=== PATIENT | male | born 1975 | race Caucasian/White ===

== ENCOUNTER 2016-06-14 16:23 | Emergency (ER) | payer OTHER ==
[2016-06-14 16:29] VITALS: BP 145/84; PULSE 96; TEMP 99.1; BMI 36.6
[2016-06-14] MEDS ORDERED: KETOROLAC TROMETHAMINE 60 MG/2 ML VIAL IM ONE (18:25)
[2016-06-14] MEDS ORDERED: CYCLOBENZAPRINE HCL 10 MG TABLET (FP) PO ONE (18:25)
[2016-06-14] MEDS ORDERED: KETOROLAC TROMETHAMINE 60 MG/2 ML VIAL ONE (18:28)
[2016-06-14] MEDS ORDERED: CYCLOBENZAPRINE HCL 10 MG TABLET (FP) ONE (18:28)
--- NOTE | 2016-06-14 18:34 | PDOC ---
History of Present Illness - General Chief Complaint: Injury Stated Complaint: PAIN Time Seen by Provider: 06/14/16 17:46 History Source: Patient Exam Limitations: No Limitations - History of Present Illness Initial Comments: 06/14/16 18:31 Chief complaint: Left sided back pain and bilateral torso pain worse with movement or deep breathing History of present illness: Patient is a 41-year-old male with a history of hypertension here today complaining of bilateral torso pain with movement or deep breathing and left-sided thoracic back pain with muscle spasm with movement. Patient reports that on 06/12/2016 he had to catch a 150 pounds pipe to prevent it from hitting another person while at work. Patient twisted his torso to catch the pipe has felt discomfort bilateral torso since and left- sided thoracic back pain which is currently with movement a 9 out of 10 aching in nature. He has not taken anything for pain. Patient is any radiation of pain down the legs or arms. Patient denies any neck pain. Occurred: reports: other (06/12/16) Severity: reports: severe (b/l lateral torso, left thoracic back along paraspinal muscles) Pain Location: reports: back, other (b/l lateral torso) Method of Injury: Yes: other (moving a 150 lb pipe) Modifying Factors: improves with: immobilization Loss of Consciousness: no loss of consciousness Associated Symptoms (Fall): muscle spasms (along left thoracic back ) Past History - Past Medical History Allergies/Adverse Reactions: Allergies Allergy/AdvReac Type Severity Reaction Status Date / Time MSG AdvReac Uncoded 06/14/16 16:29 Home Medications: Ambulatory Orders Hydrochlorothiazide [Hctz -] 12.5 mg PO DAILY 11/16/15 Lisinopril 10 mg PO DAILY 11/16/15 Cyclobenzaprine HCl [Flexeril -] 10 mg PO Q8H PRN #21 tablet 06/14/16 Naproxen [Naprosyn -] 500 mg PO BID PRN #14 tablet MDD 2 06/14/16 HTN: Yes HIV: No - Immunization History Immunization Up to Date: Yes - Psycho/Social/Smoking Cessation Hx Anxiety: No Suicidal Ideation: No Smoking History: Never smoked Have you smoked in the past 12 months: No Number of Cigarettes Smoked Daily: 0 Cigars Per Day: 0 Hx Alcohol Use: No Drug/Substance Use Hx: No Substance Use Type: None Review of Systems - Review of Systems Able to Perform ROS?: Yes Constitutional: No: Symptoms Reported HEENTM: No: Symptoms Reported Respiratory: No: Symptoms reported Cardiac (ROS): No: Symptoms Reported ABD/GI: No: Symptoms Reported : No: Symptoms Reported Musculoskeletal: Yes: Back Pain (left thoracic back ), Muscle Pain (b/l lateral torso ) Integumentary: No: Symptoms Reported Neurological: No: Symptoms reported *Physical Exam - Vital Signs Last Vital Signs Temp Pulse Resp BP Pulse Ox 99.1 F 96 H 20 145/84 9 L 06/14/16 16:25 06/14/16 16:25 06/14/16 16:25 06/14/16 16:25 06/14/16 16:25 - Physical Exam General Appearance: Yes: Appropriately Dressed Neck: negative: Tender, Rigidity, Tender lateral, Tender midline Respiratory/Chest: positive: Lungs Clear, Normal Breath Sounds. negative: Chest Tender, Respiratory Distress Cardiovascular: positive: Regular Rhythm, Regular Rate, S1, S2 Musculoskeletal: positive: Normal Inspection, Muscle Spasm (along left paraspinal muscle thoracic spine, ), Other (no midline vertebral back pain ). negative: CVA Tenderness, CVA Tenderness (R), CVA Tenderness (L), Decreased Range of Motion Extremity: positive: Normal Capillary Refill, Normal Inspection, Normal Range of Motion Integumentary: positive: Normal Color Neurologic: positive: Alert, Normal Response, Motor Strength 5/5, Responsive Deep Tendon Reflexes: Knee (L): 4+, Knee (R): 4+ Medical Decision Making - Medical Decision Making 06/14/16 18:31 06/14/16 18:34 Patient is a 41-year-old male with a history of hypertension here today complaining of bilateral torso pain with movement or deep breathing and left- sided thoracic back pain with muscle spasm with movement. Patient reports that on 06/12/2016 he had to catch a 150 pounds pipe to prevent it from hitting another person while at work. Patient twisted his torso to catch the pipe has felt discomfort bilateral torso since and left-sided thoracic back pain which is currently with movement a 9 out of 10 aching in nature. He has not taken anything for pain. Patient is any radiation of pain down the legs or arms. Patient denies any neck pain. He denies any midline neck or back tenderness since this incident occurred. b/l lateral torso muscular and left thoracic back with muscle spasm PLAN: toradol 60 mg IM now naprosyn 500 mg bid prn pain # 14 tabs flexeril 10 mg po now than q 8hrs prn pain # 21 tabs follow up with orthopedist if pain continues *DC/Admit/Observation/Transfer Diagnosis at time of Disposition: Muscle spasm of back Strain of muscle of torso Qualifiers: Encounter type: initial encounter Qualified Code(s): S29.019A - Strain of muscle and tendon of unspecified wall of thorax, initial encounter Strain of back Qualifiers: Encounter type: initial encounter Qualified Code(s): S39.012A - Strain of muscle, fascia and tendon of lower back, initial encounter - Discharge Dispostion Disposition: HOME Condition at time of disposition: Stable - Prescriptions Prescriptions: Cyclobenzaprine HCl [Flexeril -] 10 mg PO Q8H PRN #21 tablet PRN Reason: Muscle Spasms Naproxen [Naprosyn -] 500 mg PO BID PRN #14 tablet MDD 2 PRN Reason: Pain - Referrals Referrals: STAFF,NOT ON [Primary Care Provider] - Elvin Howe MD [Staff Physician] - - Patient Instructions Additional Instructions: Follow Up with orthopedist if pain continues and back avoid any heavy lifting or pulling until pain has resolved Return to emergency room if pain worsens Patient voiced understanding of discharge instructions and all questions were answered
== END 2016-06-14 18:50 | disposition home or self-care (01) ==
LOC: JERFT 16:23
PROC: 3E0233Z Introduction of Anti-inflammatory into Muscle, Percutaneous Approach (ICD-10-PCS; principal; 2016-06-14)
DX: S29.019A Strain of muscle and tendon of unspecified wall of thorax, initial encounter (principal); S39.012A Strain of muscle, fascia and tendon of lower back, initial encounter; X58.XXXA Exposure to other specified factors, initial encounter; Y93.89 Activity, other specified; Y92.9 Unspecified place or not applicable; I10 Essential (primary) hypertension
CPT/HCPCS: 96372; 99281-25

== ENCOUNTER 2017-02-08 20:29 | Emergency (ER) | payer OTHER ==
[2017-02-08 20:44] VITALS: BMI 34.4
--- NOTE | 2017-02-08 21:47 | PDOC ---
History of Present Illness - General Chief Complaint: Blood Pressure Problem Stated Complaint: BLOOD PRESSURE Time Seen by Provider: 02/08/17 22:00 History Source: Patient, Spouse Exam Limitations: No Limitations - History of Present Illness Initial Comments: 02/08/17 22:18 41yo male presents ambulatory to the ED for eval of elevated BP at home. Pt states he missed his dose of hctz and did not take his nighttime dose of lisinopril 2.5mg. Pt states he drank 20 oz of coffee tonight. Pt states he has not drank regular water today. Just coffee. Denies cp/sob. No abd pain. No n/v/ d. No dysuria. States he felt tingling in his fingers earlier. No palpitations and had a mild L sided kuo earlier- checked his BP and it was 160/110 at home. Denies blurred vision. No kuo currently. NO paresthesias currently. Repeat bp in ED was 135/90. Pt denies all complaints. States he has an rx for HCTZ at the pharmacy - only missed today's dose. States has lisinopril at home, just did not take nighttime dose. Pt denies all other complaints. Past History - Travel Traveled outside of the country in the last 30 days: No Close contact w/someone who was outside of country & ill: No - Past Medical History Allergies/Adverse Reactions: Allergies Allergy/AdvReac Type Severity Reaction Status Date / Time No Known Drug Allergies Allergy Verified 02/08/17 22:08 MSG AdvReac Uncoded 06/14/16 16:29 Home Medications: Ambulatory Orders Hydrochlorothiazide [Hctz -] 12.5 mg PO DAILY 11/16/15 Lisinopril 10 mg PO DAILY 11/16/15 Cyclobenzaprine HCl [Flexeril -] 10 mg PO Q8H PRN #21 tablet 06/14/16 Naproxen [Naprosyn -] 500 mg PO BID PRN #14 tablet MDD 2 06/14/16 HTN: Yes HIV: No - Immunization History Immunization Up to Date: Yes - Psycho/Social/Smoking Cessation Hx Anxiety: No Suicidal Ideation: No Smoking History: Never smoked Have you smoked in the past 12 months: No Number of Cigarettes Smoked Daily: 0 Cigars Per Day: 0 Information on smoking cessation initiated: No Hx Alcohol Use: No Drug/Substance Use Hx: No Substance Use Type: None Review of Systems - Review of Systems Able to Perform ROS?: Yes Is the patient limited Czech proficient: No Constitutional: No: Chills, Fever, Loss of Appetite, Weakness HEENTM: No: Eye Pain, Blurred Vision, Double Vision, Nose Congestion, Tinnitus, Hearing Loss Respiratory: No: Cough, Orthopnea, Shortness of Breath, SOB with Exertion, SOB at Rest Cardiac (ROS): No: Chest Pain, Irregular Heart Rate, Palpitations ABD/GI: No: Abdominal Distended, Diarrhea, Nausea, Vomiting : No: Dysuria Musculoskeletal: No: Back Pain, Neck Pain Neurological: Yes: Headache, Tingling. No: Numbness, Paresthesia All Other Systems: Reviewed and Negative *Physical Exam - Vital Signs Last Vital Signs Temp Pulse Resp BP Pulse Ox 98.4 F 68 18 162/110 100 02/08/17 20:41 02/08/17 20:41 02/08/17 20:41 02/08/17 20:41 02/08/17 20:41 - Physical Exam General Appearance: Yes: Nourished, Appropriately Dressed. No: Apparent Distress HEENT: positive: EOMI, PHAN, Normal ENT Inspection, Pharynx Normal Neck: positive: Trachea midline, Supple. negative: Tender Respiratory/Chest: positive: Lungs Clear, Normal Breath Sounds. negative: Respiratory Distress Cardiovascular: positive: Regular Rhythm, Regular Rate, S1, S2. negative: Edema Vascular Pulses: Dorsalis-Pedis (R): 2+, Doralis-Pedis (L): 2+ Gastrointestinal/Abdominal: positive: Normal Bowel Sounds, Soft. negative: Tender, Pulsatile Mass, Tenderness Musculoskeletal: positive: Normal Inspection Extremity: positive: Normal Capillary Refill, Normal Inspection, Normal Range of Motion. negative: Delayed Capillary Refill, Pedal Edema, Swelling, Calf Tenderness Integumentary: positive: Normal Color, Dry, Warm Neurologic: positive: core cleaner II-XII NML intact, Fully Oriented, Alert, Normal Mood/ Affect, Normal Response, Motor Strength 5/5 Medical Decision Making - Medical Decision Making 02/08/17 22:07 41yo male with hx of HTN, drank 20 oz coffee, did not take HCTZ or lisinopril today with elevated BP at home and L sided kuo -all symptoms resolved -no complaints at this time -repeat bp 135/90 -no symptomatic complaints. 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 no complaints -stable for d/c to home will apple picking supervisor 02/08/17 22:15 discussed all reasons to return to the ED and need for repeat BP check tomorrow with PMD. Pt agrees with the plan. Family at the bedside agrees with the plan. 02/08/17 22:32 *DC/Admit/Observation/Transfer Diagnosis at time of Disposition: Hypertension Qualifiers: Hypertension type: unspecified Qualified Code(s): I10 - Essential (primary) hypertension - Discharge Dispostion Disposition: HOME Condition at time of disposition: Stable Admit: No - Referrals Referrals: STAFF,NOT ON [Primary Care Provider] - Luis Sandoval MD [Non Staff, Medical] - - Patient Instructions Printed Discharge Instructions: DI for High Blood Pressure Additional Instructions: Please keep your appointment to see your PMD tomorrow. Please apple picking supervisor your HCTZ from the pharmacy tomorrow. Please return to the Ed with any further concerns. - Attestations Physician Attestion: 02/08/17 22:17 I, Dr. Isidra Gatica, DO, attest that this document has been prepared under my direction and personally reviewed by me in its entirety. I further attest, that it accurately reflects all work, treatment, procedures and medical decision -making performed by me.
[2017-02-08] MEDS ORDERED: LISINOPRIL 5 MG TABLET (FP) PO ONE (22:07)
[2017-02-08] MEDS ORDERED: HYDROCHLOROTHIAZIDE 12.5 MG CAPSULE (FP) PO ONE (22:58)
[2017-02-08 23:39] VITALS: BP 128/83; PULSE 79; TEMP 97.7
[2017-02-09] MEDS ORDERED: HYDROCHLOROTHIAZIDE 25 MG TABLET (FP) PO ONE (22:06)
== END 2017-02-08 23:39 | disposition home or self-care (01) ==
LOC: JER 20:29
DX: I10 Essential (primary) hypertension (principal); Z91.14 Patient's other noncompliance with medication regimen
CPT/HCPCS: 99281-25

== ENCOUNTER 2018-06-28 23:41 | Emergency (ER) | payer OTHER ==
[2018-06-29 00:10] VITALS: BP 137/88; PULSE 67; TEMP 98.1; BMI 53.8
[2018-06-29] MEDS ORDERED: ASPIRIN 81 MG CHEWABLE TABLETS PO ONE (00:59)
--- NOTE | 2018-06-29 01:06 | PDOC ---
History of Present Illness - General Stated Complaint: Shortness of Breath Time Seen by Provider: 06/29/18 00:25 History Source: Patient Exam Limitations: No Limitations - History of Present Illness Initial Comments: 06/29/18 01:01 HISTORY OF PRESENT ILLNESS: This is a 43-year-old male with history of hypertension presents emergency department for evaluation of pulling sensation in his left chest which has been intermittent for the past month. Patient reports he was seen by his primary doctor Dr. Ferrara who is also a mess cook and was recently started on blood pressure medication. Patient reports when the pulling sensation starts he occasionally feels short of breath, slightly disoriented and shaky-"like my blood sugar is low." He denies any radiation of symptoms, nausea, vomiting, headaches, dizziness, blurry vision, abdominal pain , dysuria, hematuria, constipation, diarrhea or rectal bleeding. No recent travel or sick contacts. PAST MEDICAL HISTORY: HTN SURGICAL HISTORY: Denies ALLERGIES: No known drug allergies REVIEW OF SYSTEMS General/Constitutional: Denies fever or chills. Denies weakness, weight change. HEENT: Denies change in vision. Denies ear pain or discharge. Denies sore throat. Cardiovascular: See HPI Respiratory: Denies cough, wheezing, or hemoptysis. Gastrointestinal: Denies nausea, vomiting, diarrhea or constipation. Denies rectal bleeding. Genitourinary: Denies dysuria, frequency, or change in urination. Musculoskeletal: Denies joint or muscle swelling or pain. Denies neck or back pain. Skin and breasts: Denies rash or easy bruising. Neurologic: Denies headache, vertigo, loss of consciousness, or loss of sensation. Psychiatric: Denies depression or anxiety. Endocrine: Denies increased thirst. Denies abnormal weight change. Hematologic/Lymphatic: Denies anemia, easy bleeding, or history of blood clots. Allergic/Immunologic: Denies hives or skin allergy. Denies latex allergy. PHYSICAL EXAM General Appearance: Well-appearing, appropriately dressed. No apparent distress , no intoxication. HEENT: EOMI, PERRLA, normal ENT inspection, normal voice, TMs normal, pharynx normal. No conjunctival pallor. No photophobia, scleral icterus. Neck: Supple. Trachea midline. No tenderness, rigidity, carotid bruit, stridor , lymphadenopathy, or thyromegaly. Respiratory/Chest: Lungs CTAB. No shortness of breath, chest tenderness, respiratory distress, accessory muscle use. No crackles, rales, rhonchi, stridor , wheezing, dullness Cardiovascular: RRR. S1, S2. No JVD, murmur, bradycardia, tachycardia. Vascular Pulses: Dorsalis-Pedis (R): 2+, Dorsalis-Pedis (L): 2+ Gastrointestinal/Abdominal: Normal bowel sounds. Abdomen soft, non-distended. No tenderness or rebound tenderness. No organomegaly, pulsatile mass, guarding, hernia, hepatomegaly, splenomegaly. Lymphatic: No adenopathy, tenderness. Musculoskeletal/Extremities: Normal inspection. FROM of all extremities, normal capillary refill. Pelvis Stable. No CVA tenderness. No tenderness to extremities, pedal edema, swelling, erythema or deformity. Integumentary: Appropriate color, dry, warm. No cyanosis, erythema, jaundice or rash Neurologic: general production laborer II-XII intact. Fully oriented, alert. Appropriate mood/affect. Motor strength 5/5. No appreciable EOM palsy, facial droop or sensory deficit. Past History - Past Medical History Allergies/Adverse Reactions: Allergies Allergy/AdvReac Type Severity Reaction Status Date / Time No Known Drug Allergies Allergy Verified 06/29/18 00:01 Home Medications: Ambulatory Orders Hydrochlorothiazide [Hctz -] 12.5 mg PO DAILY 11/16/15 Lisinopril 10 mg PO DAILY 11/16/15 COPD: No HTN: Yes - Immunization History Immunization Up to Date: Yes - Suicide/Smoking/Psychosocial Hx Smoking History: Never smoked Have you smoked in the past 12 months: No Number of Cigarettes Smoked Daily: 0 Cigars Per Day: 0 Information on smoking cessation initiated: No Hx Alcohol Use: No Drug/Substance Use Hx: No Substance Use Type: None *Physical Exam - Vital Signs Last Vital Signs Temp Pulse Resp BP Pulse Ox 98.1 F 67 20 137/88 97 06/28/18 23:58 06/28/18 23:58 06/28/18 23:58 06/28/18 23:58 06/28/18 23:58 Moderate Sedation - Procedure Monitoring Vital Signs: Procedure Monitoring Vital Signs Temperature 98.1 F 06/28/18 23:58 Pulse Rate 67 06/28/18 23:58 Respiratory Rate 20 06/28/18 23:58 Blood Pressure 137/88 06/28/18 23:58 O2 Sat by Pulse Oximetry (%) 97 06/28/18 23:58 ED Treatment Course - LABORATORY CBC & Chemistry Diagram: 06/29/18 01:00 06/29/18 01:00 - ADDITIONAL ORDERS Additional order review: 06/29/18 01:00 RBC 4.92 MCV 83.8 MCHC 35.1 RDW 13.2 MPV 8.7 Neutrophils % 63.0 Lymphocytes % 25.3 Monocytes % 7.8 Eosinophils % 2.6 Basophils % 1.3 - RADIOLOGY Radiology Studies Ordered: Category Date Time Status CHEST PA & LAT [RAD] Stat Radiology 06/29/18 01:00 Completed - Medications Given in the ED: ED Medications Discontinued Medications Generic Name Dose Route Start Last Admin Trade Name Maryann PRN Reason Stop Dose Admin Aspirin 162 mg 06/29/18 00:59 06/29/18 01:19 Asa - PO 06/29/18 01:00 162 mg ONCE ONE Administration Medical Decision Making - Medical Decision Making 06/29/18 01:05 A/P: 43-year-old male with a pulling feeling to the left side of his chest intermittently for one month Physical exam is within normal limits Differential diagnosis includes but not limited to: Anxiety, ACS, pneumonia, GERD, hiatal hernia, musculoskeletal pain Labs including cardiac profile Urinalysis EKG Chest x-ray Aspirin 162 mg orally now 06/29/18 02:31 Laboratory testing is unremarkable. EKG is reviewed by me and interpreted by Dr. Duggan: Normal sinus rhythm with rate of 68. Normal intervals noted. No ischemic changes are present. 06/29/18 02:44 Chest x-rays read by me: Angles clear. Cardiac silhouette is within normal limits. No focal infiltrates or consolidations present. No significant change from study performed 11/16/59 Discharge home to follow up with his primary doctor. I discussed the physical exam findings, ancillary test results and final diagnoses with the patient. I answered all of the patient's questions. The patient was satisfied with the care received and felt comfortable with the discharge plan and treatment plan. The patient will call their primary care physician within 24 hours to arrange follow-up and will return to the Emergency Department with any new, persistent or worsening symptoms. *DC/Admit/Observation/Transfer Diagnosis at time of Disposition: Atypical chest pain - Discharge Dispostion Disposition: HOME Condition at time of disposition: Fair Decision to Admit order: No - Referrals Referrals: Rogers Ferrara [Primary Care Provider] - - Patient Instructions Additional Instructions: You cardiac enzymes, EKG and chest x-ray were all normal. Follow-up with Dr. Ferrara within the next 7 days for reevaluation. Return to emergency department for any new or worsening symptoms. Thank you very much for choosing us to provide your emergent health care needs. - Post Discharge Activity Forms/Work/School Notes: Back to Work
[2018-06-29] MEDS ORDERED: ASPIRIN 81 MG CHEWABLE TABLETS ONE (01:15)
[2018-06-29 01:19] LABS: BASO % 1.3 % (0-2.0); EOS % 2.6 % (0-4.5); HEMATOCRIT 41.2 % (35.4-49); HEMOGLOBIN 14.5 GM/dL (11.7-16.9); LYMPH % 25.3 % (8-40); MCH 29.5 pg (25.7-33.7); MCHC 35.1 g/dl (32.0-35.9); MEAN CELL VOLUME 83.8 fl (80-96); MEAN PLT VOLUME 8.7 fl (7.5-11.1); MONO % 7.8 % (3.8-10.2); PLATELET COUNT 221 K/MM3 (134-434); RBC 4.92 M/mm3 (4.00-5.60); RDW 13.2 % (11.9-15.9); WHITE BLOOD COUNT 10.4 K/mm3 (4.0-10.0)
[2018-06-29 01:24] LABS: URINE APPEARANCE CLEAR; URINE BILIRUBIN NEGATIVE (<2.0 mg/dL); URINE COLOR STRAW; URINE GLUCOSE (UA) NEGATIVE (NEGATIVE); URINE KETONE NEGATIVE (NEGATIVE); URINE LEUK ESTERASE NEGATIVE (NEGATIVE); URINE NITRITE NEGATIVE (NEGATIVE); URINE PROTEIN NEGATIVE (NEGATIVE); URINE UROBILINOGEN NEGATIVE mg/dL (0.2-1.0)
[2018-06-29 01:51] LABS: ALK PHOS 129 U/L (45-117); ANION GAP 6 MMOL/L (8-16); BILIRUBIN,TOTAL 0.3 mg/dL (0.2-1); BLOOD UREA NITROGEN 16 mg/dL (7-18); CALCIUM 9.1 mg/dL (8.5-10.1); CHLORIDE 106 mmol/L (98-107); CO2 27 mmol/L (21-32); CREATININE 0.9 mg/dL (0.55-1.3); GLUCOSE,RANDOM 101 mg/dL (74-106); MAGNESIUM 2.2 mg/dL (1.8-2.4); POTASSIUM 4.2 mmol/L (3.5-5.1); SGOT/AST 24 U/L (15-37); SGPT/ALT 48 U/L (13-61); SODIUM 139 mmol/L (136-145); TOT PROT 7.3 g/dl (6.4-8.2)
[2018-06-29 02:28] LABS: INR 1.02 (0.83-1.09)
--- NOTE | 2018-06-29 13:06 | EKG ---
Test Reason : Blood Pressure : / mmHG Vent. Rate : 068 BPM Atrial Rate : 068 BPM P-R Int : 166 ms QRS Dur : 110 ms QT Int : 400 ms P-R-T Axes : 025 -11 002 degrees QTc Int : 425 ms NORMAL SINUS RHYTHM NON-SPECIFIC INTRA-VENTRICULAR CONDUCTION DELAY WHEN COMPARED WITH ECG OF 16-NOV-2015 21:55, QT HAS SHORTENED Confirmed by FRANK OQUENDO MD ([id number]) on 06/29/2018 1:06:10 PM Referred By: Confirmed By:FRANK OQUENDO MD
== END 2018-06-29 02:50 | disposition home or self-care (01) ==
LOC: JER 23:41
DX: R07.9 Chest pain, unspecified (principal)
CPT/HCPCS: 36415; 71046-TC-FY; 80053; 81003; 82550; 83735; 83880; 84484; 85025; 85610; 93005; 93010; 99282-25